=== PATIENT | male | born 1955 | race Caucasian/White ===

== ENCOUNTER → 2019-03-03 | Outpatient (CLI) | payer MEDICARE, OTHER ==
[2005-09-04 10:35] VITALS: TEMP 96.9
[~2019-03-03] MED LIST: CIPRO 500MG TA500 MG PO; FLAGYL500 MG PO; ZOFRAN 4MG T4 MG/TAB PO
== END ==
LOC: COL.RAD 09:33
DX: J98.6 Disorders of diaphragm (principal)

== ENCOUNTER → 2021-02-17 | Outpatient (CLI) | payer MEDICARE | LOC: COL.RAD 02-10 13:30 | DX: Z12.2 Encounter for screening for malignant neoplasm of respiratory organs (principal); Z87.891 Personal history of nicotine dependence ==

== ENCOUNTER → 2022-05-10 | Outpatient (CLI) | payer MEDICARE | LOC: COL.RAD 13:07 | DX: R91.1 Solitary pulmonary nodule (principal); J43.9 Emphysema, unspecified; Z87.891 Personal history of nicotine dependence ==